=== PATIENT | male | born 1980 | race Caucasian/White ===

== ENCOUNTER 2023-11-02 18:36 | Emergency (ER) | payer OTHER ==
[~2023-11-02] VITALS: Ht 165.1 cm; Wt 100.9 kg
[2023-11-02 19:13] VITALS: BP 128/68; PULSE 88; RESP 16; TEMP 98.9; O2SAT 97
[2023-11-02] MEDS: KETOROLAC TROMETH 60MG/2ML VIAL IM ONE (20:53)
[2023-11-02] MEDS ORDERED: IBUP-1456 PO (20:58)
[2023-11-02] MEDS ORDERED: CYCL-837 PO (20:58)
== END 2023-11-02 21:37 | disposition home or self-care (01) ==
LOC: ER 18:36
DX: S46.812A Strain of other muscles, fascia and tendons at shoulder and upper arm level, left arm, initial encounter (principal); S39.012A Strain of muscle, fascia and tendon of lower back, initial encounter; Z79.899 Other long term (current) drug therapy; X50.0XXA Overexertion from strenuous movement or load, initial encounter; Y93.89 Activity, other specified; Y92.89 Other specified places as the place of occurrence of the external cause; Y99.0 Civilian activity done for income or pay
CPT/HCPCS: 72100; 73030; 96372; 99284; J1885

== ENCOUNTER 2024-05-23 18:36 | Emergency (ER) | payer MEDICAID, OTHER ==
[~2024-05-23] VITALS: Ht 152.4 cm; Wt 90.3 kg
[~2024-05-23 18:36] MED LIST: CYCL-837 PO; IBUP-1456 PO
[2024-05-23 18:51] VITALS: BP 133/68; PULSE 87; RESP 16
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
--- NOTE | 2024-05-23 20:08 | DVH ---
EXAM: CT HEAD WITHOUT CONTRAST HISTORY: headache COMPARISON: None TECHNIQUE: Axial images were obtained and reformatted in coronal and sagittal planes. All CT scans at this medical facility are performed using dose modulation techniques as appropriate t o a performed exam including the following: Automated exposure control was utilized; adjustment of th e MA and/or KV according to patient size; and use of iterative reconstruction technique. CT Dose: CTDI volume is 57.34 mGy. Dose-length product is 1148.58 mGy*cm FINDINGS: Supratentorial Region: No evidence for large acute territorial ischemia. No intracranial hemorrhage is noted. Posterior Fossa: No acute abnormality. Brainstem: Unremarkable. Sellar/Suprasellar Region: Unremarkable. Ventricles, Cisterns, Sulci: Age-appropriate. Orbits: Unremarkable. Paranasal Sinuses: Unremarkable. Mastoid Air Cells: Unremarkable. Vasculature: Unremarkable. Bones/Soft Tissues: No acute abnormality. Other: None. IMPRESSION: 1. No acute intracranial process.
[2024-05-23 20:17] VITALS: O2SAT 95
== END 2024-05-23 20:18 | disposition home or self-care (01) ==
LOC: ER 18:36
DX: S16.1XXA Strain of muscle, fascia and tendon at neck level, initial encounter (principal); R51.9 Headache, unspecified; V43.52XA Car driver injured in collision with other type car in traffic accident, initial encounter; Y93.89 Activity, other specified; Y92.410 Unspecified street and highway as the place of occurrence of the external cause; Y99.8 Other external cause status
CPT/HCPCS: 70450